=== PATIENT | male | born 1955 | race Caucasian/White ===

== ENCOUNTER 2021-10-11 11:56 | Inpatient (IN) ==
[2021-10-11] MEDS ORDERED: Aspirin 81 MG TAB.CHEW PO ONE (12:22)
[2021-10-11] MEDS ORDERED: *HR* Metoprolol 5 MG/5 ML VIAL IVP ONE (12:23)
[2021-10-11] MEDS ORDERED: Furosemide 40 MG/4 ML VIAL IVP ONE (12:23)
[2021-10-11 13:03] LABS: Basophils % 0.5 %; Eosinophils % 0.5 %; Hemoglobin 13.5 g/dL (12.9-16.9); Immature Granulocytes % 0.5 % (0-4); Lymphocytes # 1.3 K/mcL (0.6-4.6); Lymphocytes % 19.2 %; Mean Corpuscular HGB Conc 32.9 g/dL (31.6-35.5); Mean Corpuscular Hemoglobin 34.5 pg (28.0-33.3); Mean Corpuscular Volume 104.9 fL (83.0-100.0); Mean Platelet Volume 10.9 fL (9.4-12.4); Monocytes # 0.9 K/mcL (0.0-1.3); Monocytes % 13.5 %; Neutrophils # 4.4 K/mcL (1.6-8.9); Platelet Count 176 K/mcL (140-400); Red Blood Count 3.91 M/mcL (4.19-5.50); Red Cell Distribution Width 13.2 % (11.5-14.5); Segmented Neutrophils % 65.8 %; White Blood Count 6.7 K/mcL (4.3-11.1)
[2021-10-11 13:17] LABS: Bilirubin,Urine Negative (Negative); Blood,Urine Negative (Negative); Clarity,Urine Clear (Clear); Color,Urine Yellow (Yellow); Glucose,Urine (UA) Normal (Normal); Hyaline Casts,Urine Many per lpf (None Seen); Ketones,Urine Negative (Negative); Leukocyte Esterase,Urine Trace (Negative); Mucus,Urine Few per lpf (None-Few); Nitrite,Urine Negative (Negative); Protein,Urine Negative (Neg-Trace); RBC,Urine 0-3 per hpf (0-3); Renal Epithelial Cells,Urine Few per hpf (None-Few); Squamous Epithelial Cell,Urine Few per hpf (None-Few); Transitional Epi Cells,Urine Few per hpf (None-Few); Urobilinogen,Urine Normal (Normal)
[2021-10-11 13:22] LABS: Alanine Aminotransferase 79 Units/L (7-52); Albumin 3.9 g/dL (3.5-5.7); Albumin/Globulin Ratio 1.3 (1.1-2.2); Alkaline Phosphatase 88 Units/L (34-104); Aspartate Amino Transferase 115 Units/L (13-39); BUN/Creatinine Ratio 18 (6-26); Bilirubin,Direct 0.7 mg/dL (0.0-0.2); Bilirubin,Indirect 0.8 mg/dL (0.0-1.0); Bilirubin,Total 1.5 mg/dL (0.3-1.0); Blood Urea Nitrogen 26 mg/dL (8-23); Calcium 9.1 mg/dL (8.6-10.3); Carbon Dioxide 28 mEq/L (23-29); Chloride 92 mEq/L (98-107); Globulin 2.9 g/dL (2.4-3.5); Glucose 92 mg/dL (70-105); Osmolality,Calculated 268 (280-300); Potassium 5.1 mEq/L (3.5-5.1); Sodium 127 mEq/L (136-145); Total Protein 6.8 g/dL (6.4-8.9); Troponin I 0.03 ng/mL (< 0.04); eGFR For African Americans 59 (> 60); eGFR For Non-African Americans 48 (> 60)
[2021-10-11 13:35] LABS: Thyroid Stimulating Hormone 3.072 mcIU/mL (0.340-5.600)
[2021-10-11] MEDS ORDERED: DilTIAZem 50 MG/50 ML IV.SOLN IVC SCH (13:45)
[2021-10-11] MEDS ORDERED: 0.9 % Sodium Chloride 500 ML IVC ONE (13:56)
[2021-10-11 14:18] LABS: Ethanol < 10 mg/dL (Less than 10)
[2021-10-11 15:01] LABS: Potassium,Urine 52.8 mEq/L
[2021-10-11] MEDS ORDERED: Melatonin 3 MG TABLET PO PRN (15:23)
[2021-10-11] MEDS ORDERED: Naloxone 0.4 MG/ML INJ IVP PRN (15:23)
[2021-10-11] MEDS ORDERED: Mag Hydrox/Al Hydrox/Simeth 30 ML UDC PO PRN (15:23)
[2021-10-11] MEDS ORDERED: Acetaminophen 325 MG TABLET PO PRN (15:23)
[2021-10-11] MEDS ORDERED: MOM Conc 10 ML UD.LIQ PO PRN (15:23)
[2021-10-11] MEDS ORDERED: Ondansetron 4 MG/2 ML VIAL IVP PRN (15:23)
[2021-10-11] MEDS ORDERED: Perflutren Lipid Microsphere 1.3 ML in 0.9 % Sodium Chloride 8.7 ML IVP PRN (17:21)
[2021-10-11] MEDS ORDERED: FluocinoNIDE 0.05% CRM 15 GM TUBE TP PRN (22:31)
[2021-10-11] MEDS: Levalbuterol Neb 1.25 MG/3 ML IH SCH (23:20)
[2021-10-12 01:22] LABS: Hemoglobin 12.2 g/dL (12.9-16.9); Mean Corpuscular HGB Conc 33.9 g/dL (31.6-35.5); Mean Corpuscular Hemoglobin 34.9 pg (28.0-33.3); Mean Corpuscular Volume 102.9 fL (83.0-100.0); Mean Platelet Volume 10.3 fL (9.4-12.4); Platelet Count 145 K/mcL (140-400); White Blood Count 5.9 K/mcL (4.3-11.1)
[2021-10-12 01:45] LABS: BUN/Creatinine Ratio 20 (6-26); Blood Urea Nitrogen 24 mg/dL (8-23); Calcium 8.4 mg/dL (8.6-10.3); Carbon Dioxide 29 mEq/L (23-29); Chloride 92 mEq/L (98-107); Chol/HDL Ratio 3.3 (0-4.9); Cholesterol 75 mg/dL (< 200); Glucose 148 mg/dL (70-105); HDL Cholesterol 23 mg/dL (40-59); LDL Cholesterol,Calculated 43 mg/dL (< 100); Magnesium 1.7 mg/dL (1.6-2.6); Osmolality,Calculated 271 (280-300); Phosphorous 2.9 mg/dL (2.7-4.5); Potassium 4.2 mEq/L (3.5-5.1); Sodium 127 mEq/L (136-145); Triglycerides 47 mg/dL (< 150); eGFR For African Americans > 60 (> 60); eGFR For Non-African Americans 59 (> 60)
[2021-10-12 02:17] LABS: Estimated Average Glucose 128 mg/dl; Hemoglobin A1C 6.1 %
[2021-10-12] MEDS: Levalbuterol Neb 1.25 MG/3 ML IH SCH ×6 (04:09→23:15)
[2021-10-12 04:27] LABS: Hepatitis B Core IgM Nonreactive (Nonreactive)
[2021-10-12 04:28] LABS: Hepatitis A Antibody IgM Nonreactive (Nonreactive); Hepatitis C Virus Antibody Nonreactive (Nonreactive)
[2021-10-12] MEDS ORDERED: Furosemide 40 MG TABLET PO SCH (09:00)
[2021-10-12] MEDS ORDERED: *HR* Rivaroxaban 10 MG TABLET PO SCH (09:00)
[2021-10-12] MEDS: Cyanocobalamin (B-12) 1,000 MCG TABLET PO SCH (09:09)
[2021-10-12] MEDS: Acyclovir 200 MG CAPSULE PO SCH ×2 (09:09→20:23)
[2021-10-12] MEDS: Loratadine 10 MG TABLET PO SCH (09:09)
[2021-10-12] MEDS: lisinopriL 5 MG TABLET PO SCH (09:09)
[2021-10-12] MEDS: Aspirin Enteric Coated 81 MG Tablet PO SCH (09:09)
[2021-10-12] MEDS: Cholecalciferol (D-3) 1,000 UNIT (25MCG) TABLET PO SCH (09:09)
[2021-10-12] MEDS: Budesonide/Formoterol 160/4.5 1 PUFF INH IH SCH ×2 (11:42→20:17)
[2021-10-12] MEDS: Tiotropium 10 INH DOSE IH SCH (11:43)
[2021-10-12 11:44] LABS: Hepatitis B Surface Antigen Reactive (Nonreactive)
[2021-10-12] MEDS ORDERED: Metoprolol XL (24 HR) Succ 25 MG TAB.ER.24H PO SCH (13:22)
[2021-10-12] MEDS ORDERED: *HR* Digoxin 0.5 MG/2 ML AMPUL IVP ONE (13:51)
[2021-10-12] MEDS ORDERED: *HR* Heparin 5,000 UNIT/ML VIAL IVP ONE (14:02)
[2021-10-12] MEDS ORDERED: *HR* Heparin 5,000 UNIT/ML VIAL IVP PRN (14:02)
[2021-10-12] MEDS ORDERED: Heparin 25,000UNIT/250ML 1/2NS 25,000 UNIT/250 ML IV.SOLN IVC SCH (14:15)
[2021-10-12 14:54] LABS: Hematocrit 39.3 % (37.5-50.1); Hemoglobin 12.7 g/dL (12.9-16.9); Mean Corpuscular HGB Conc 32.3 g/dL (31.6-35.5); Mean Corpuscular Hemoglobin 34.5 pg (28.0-33.3); Mean Corpuscular Volume 106.8 fL (83.0-100.0); Mean Platelet Volume 10.1 fL (9.4-12.4); Platelet Count 170 K/mcL (140-400); Red Blood Count 3.68 M/mcL (4.19-5.50); Red Cell Distribution Width 13.3 % (11.5-14.5); White Blood Count 6.1 K/mcL (4.3-11.1)
[2021-10-12 15:05] LABS: INR 4.2
[2021-10-12 15:07] LABS: Activated Partial Thrombo Time 43.4 Seconds (26.0-36.0)
[2021-10-12 15:15] LABS: Heparin anti-factor XA UFH > 2.00 IU/mL (0.30-0.70); Prothrombin Time 46.5 Seconds (9.4-12.1)
[2021-10-12] MEDS: Furosemide 40 MG/4 ML VIAL IVP SCH (16:02)
[2021-10-12] MEDS: Heparin 25,000UNIT/250ML 1/2NS 25,000 UNIT/250 ML IV.SOLN IVC SCH (16:04)
[2021-10-12] MEDS: *HR* Digoxin 0.5 MG/2 ML AMPUL IVP SCH (20:23)
[2021-10-13] MEDS: *HR* Digoxin 0.5 MG/2 ML AMPUL IVP SCH (01:00)
[2021-10-13] MEDS: Levalbuterol Neb 1.25 MG/3 ML IH SCH ×5 (03:31→20:39)
[2021-10-13 07:12] LABS: Hematocrit 40.4 % (37.5-50.1); Hemoglobin 13.4 g/dL (12.9-16.9); Mean Corpuscular HGB Conc 33.2 g/dL (31.6-35.5); Mean Corpuscular Hemoglobin 34.8 pg (28.0-33.3); Mean Corpuscular Volume 104.9 fL (83.0-100.0); Mean Platelet Volume 9.8 fL (9.4-12.4); Platelet Count 161 K/mcL (140-400); Red Blood Count 3.85 M/mcL (4.19-5.50); Red Cell Distribution Width 13.2 % (11.5-14.5); White Blood Count 6.7 K/mcL (4.3-11.1)
[2021-10-13 07:32] LABS: Alanine Aminotransferase 58 Units/L (7-52); Albumin 3.5 g/dL (3.5-5.7); Albumin/Globulin Ratio 1.3 (1.1-2.2); Alkaline Phosphatase 78 Units/L (34-104); Aspartate Amino Transferase 67 Units/L (13-39); BUN/Creatinine Ratio 17 (6-26); Bilirubin,Total 1.1 mg/dL (0.3-1.0); Blood Urea Nitrogen 15 mg/dL (8-23); Calcium 8.6 mg/dL (8.6-10.3); Carbon Dioxide 32 mEq/L (23-29); Chloride 93 mEq/L (98-107); Globulin 2.6 g/dL (2.4-3.5); Glucose 145 mg/dL (70-105); Osmolality,Calculated 271 (280-300); Potassium 3.9 mEq/L (3.5-5.1); Sodium 129 mEq/L (136-145); Total Protein 6.1 g/dL (6.4-8.9); eGFR For African Americans > 60 (> 60); eGFR For Non-African Americans > 60 (> 60)
[2021-10-13] MEDS: Tiotropium 10 INH DOSE IH SCH (07:48)
[2021-10-13] MEDS: Budesonide/Formoterol 160/4.5 1 PUFF INH IH SCH ×2 (07:48→20:42)
[2021-10-13] MEDS: Acyclovir 200 MG CAPSULE PO SCH ×2 (08:41→21:25)
[2021-10-13] MEDS: lisinopriL 5 MG TABLET PO SCH (08:41)
[2021-10-13] MEDS: Cholecalciferol (D-3) 1,000 UNIT (25MCG) TABLET PO SCH (08:41)
[2021-10-13] MEDS: Aspirin Enteric Coated 81 MG Tablet PO SCH (08:42)
[2021-10-13] MEDS: Cyanocobalamin (B-12) 1,000 MCG TABLET PO SCH (08:42)
[2021-10-13] MEDS: Loratadine 10 MG TABLET PO SCH (08:44)
[2021-10-13] MEDS: Furosemide 40 MG/4 ML VIAL IVP SCH (10:10)
[2021-10-13] MEDS: Heparin 25,000UNIT/250ML 1/2NS 25,000 UNIT/250 ML IV.SOLN IVC SCH ×2 (10:11→23:48)
[2021-10-13] MEDS: *HR* Metoprolol 5 MG/5 ML VIAL IVP PRN ×2 (12:09→17:36)
[2021-10-13] MEDS ORDERED: *HR* Rivaroxaban 10 MG TABLET PO SCH (17:00)
[2021-10-13] MEDS ORDERED: Metoprolol XL (24 HR) Succ 25 MG TAB.ER.24H PO ONE (17:15)
[2021-10-13] MEDS ORDERED: *HR* Digoxin 0.5 MG/2 ML AMPUL IVP ONE (18:29)
[2021-10-13] MEDS: *HR* Heparin 5,000 UNIT/ML VIAL IVP PRN (19:17)
[2021-10-14] MEDS: Levalbuterol Neb 1.25 MG/3 ML IH SCH ×7 (00:07→23:47)
[2021-10-14 01:42] LABS: Hematocrit 39.9 % (37.5-50.1); Hemoglobin 13.4 g/dL (12.9-16.9); Mean Corpuscular HGB Conc 33.6 g/dL (31.6-35.5); Mean Corpuscular Hemoglobin 35.1 pg (28.0-33.3); Mean Corpuscular Volume 104.5 fL (83.0-100.0); Mean Platelet Volume 10.1 fL (9.4-12.4); Platelet Count 200 K/mcL (140-400); Red Blood Count 3.82 M/mcL (4.19-5.50); Red Cell Distribution Width 13.2 % (11.5-14.5); White Blood Count 6.6 K/mcL (4.3-11.1)
[2021-10-14 01:59] LABS: Alanine Aminotransferase 52 Units/L (7-52); Albumin 3.5 g/dL (3.5-5.7); Albumin/Globulin Ratio 1.2 (1.1-2.2); Alkaline Phosphatase 73 Units/L (34-104); Aspartate Amino Transferase 55 Units/L (13-39); BUN/Creatinine Ratio 15 (6-26); Blood Urea Nitrogen 13 mg/dL (8-23); Calcium 8.7 mg/dL (8.6-10.3); Carbon Dioxide 36 mEq/L (23-29); Chloride 92 mEq/L (98-107); Globulin 2.9 g/dL (2.4-3.5); Glucose 130 mg/dL (70-105); Osmolality,Calculated 274 (280-300); Potassium 4.6 mEq/L (3.5-5.1); Sodium 131 mEq/L (136-145); Total Protein 6.4 g/dL (6.4-8.9); eGFR For African Americans > 60 (> 60); eGFR For Non-African Americans > 60 (> 60)
[2021-10-14 02:23] LABS: Folate 13.3 ng/mL (3.0-16.0)
[2021-10-14] MEDS: Tiotropium 10 INH DOSE IH SCH (07:26)
[2021-10-14] MEDS: Budesonide/Formoterol 160/4.5 1 PUFF INH IH SCH ×2 (07:27→20:31)
[2021-10-14] MEDS: Furosemide 40 MG/4 ML VIAL IVP SCH (08:37)
[2021-10-14] MEDS: Loratadine 10 MG TABLET PO SCH (08:38)
[2021-10-14] MEDS: Cyanocobalamin (B-12) 1,000 MCG TABLET PO SCH (08:38)
[2021-10-14] MEDS: Cholecalciferol (D-3) 1,000 UNIT (25MCG) TABLET PO SCH (08:38)
[2021-10-14] MEDS: Acyclovir 200 MG CAPSULE PO SCH ×2 (08:38→20:52)
[2021-10-14] MEDS: Aspirin Enteric Coated 81 MG Tablet PO SCH (08:38)
[2021-10-14] MEDS ORDERED: Metoprolol XL (24 HR) Succ 25 MG TAB.ER.24H PO SCH (09:00)
[2021-10-14] MEDS: *HR* Digoxin 0.5 MG/2 ML AMPUL IVP SCH (11:58)
[2021-10-14] MEDS: Metoprolol XL (24 HR) Succ 25 MG TAB.ER.24H PO ONE (14:13)
[2021-10-14] MEDS ORDERED: Albumin 25% 25gram/100mL 25 GM/100 ML IV.SOLN IVPB ONE (14:27)
[2021-10-14] MEDS ORDERED: 0.9 % Sodium Chloride 500 ML IVC ONE (15:23)
[2021-10-14] MEDS: *HR* Metoprolol 5 MG/5 ML VIAL IVP PRN ×2 (16:27→22:48)
[2021-10-14] MEDS ORDERED: Metoprolol XL (24 HR) Succ 25 MG TAB.ER.24H PO ONE ×2 (17:04→18:30)
[2021-10-14] MEDS: Heparin 25,000UNIT/250ML 1/2NS 25,000 UNIT/250 ML IV.SOLN IVC SCH (20:51)
[2021-10-15 01:27] LABS: Hematocrit 36.4 % (37.5-50.1); Hemoglobin 12.1 g/dL (12.9-16.9); Mean Corpuscular HGB Conc 33.2 g/dL (31.6-35.5); Mean Corpuscular Hemoglobin 35.1 pg (28.0-33.3); Mean Corpuscular Volume 105.5 fL (83.0-100.0); Mean Platelet Volume 9.8 fL (9.4-12.4); Platelet Count 180 K/mcL (140-400); Red Blood Count 3.45 M/mcL (4.19-5.50); Red Cell Distribution Width 13.2 % (11.5-14.5); White Blood Count 5.4 K/mcL (4.3-11.1)
[2021-10-15 01:45] LABS: BUN/Creatinine Ratio 14 (6-26); Blood Urea Nitrogen 11 mg/dL (8-23); Calcium 8.9 mg/dL (8.6-10.3); Carbon Dioxide 34 mEq/L (23-29); Chloride 94 mEq/L (98-107); Glucose 131 mg/dL (70-105); Magnesium 1.6 mg/dL (1.6-2.6); Osmolality,Calculated 279 (280-300); Potassium 4.5 mEq/L (3.5-5.1); Sodium 134 mEq/L (136-145); eGFR For African Americans > 60 (> 60); eGFR For Non-African Americans > 60 (> 60)
[2021-10-15] MEDS: Levalbuterol Neb 1.25 MG/3 ML IH SCH ×6 (04:09→23:52)
[2021-10-15] MEDS: Budesonide/Formoterol 160/4.5 1 PUFF INH IH SCH ×2 (07:26→20:05)
[2021-10-15] MEDS: Tiotropium 10 INH DOSE IH SCH (07:26)
[2021-10-15] MEDS: Metoprolol XL (24 HR) Succ 25 MG TAB.ER.24H PO ONE (07:47)
[2021-10-15] MEDS: Cholecalciferol (D-3) 1,000 UNIT (25MCG) TABLET PO SCH (08:45)
[2021-10-15] MEDS: Acyclovir 200 MG CAPSULE PO SCH ×2 (08:45→19:23)
[2021-10-15] MEDS: Aspirin Enteric Coated 81 MG Tablet PO SCH (08:46)
[2021-10-15] MEDS: Metoprolol XL (24 HR) Succ 25 MG TAB.ER.24H PO SCH (08:46)
[2021-10-15] MEDS: Cyanocobalamin (B-12) 1,000 MCG TABLET PO SCH (08:46)
[2021-10-15] MEDS: *HR* Digoxin 0.5 MG/2 ML AMPUL IVP SCH (08:46)
[2021-10-15] MEDS: Loratadine 10 MG TABLET PO SCH (08:46)
[2021-10-15] MEDS: *HR* Metoprolol 5 MG/5 ML VIAL IVP PRN ×2 (13:07→19:22)
[2021-10-15] MEDS: *HR* Heparin 5,000 UNIT/ML VIAL IVP PRN (17:29)
[2021-10-15] MEDS ORDERED: *HR* Metoprolol 5 MG/5 ML VIAL IVP ONE (21:19)
[2021-10-16 00:30] LABS: Hematocrit 37.3 % (37.5-50.1); Hemoglobin 12.1 g/dL (12.9-16.9); Mean Corpuscular HGB Conc 32.4 g/dL (31.6-35.5); Mean Corpuscular Hemoglobin 34.7 pg (28.0-33.3); Mean Corpuscular Volume 106.9 fL (83.0-100.0); Mean Platelet Volume 9.9 fL (9.4-12.4); Platelet Count 176 K/mcL (140-400); Red Blood Count 3.49 M/mcL (4.19-5.50); Red Cell Distribution Width 13.4 % (11.5-14.5); White Blood Count 5.2 K/mcL (4.3-11.1)
[2021-10-16 00:40] LABS: Alanine Aminotransferase 36 Units/L (7-52); Albumin 3.6 g/dL (3.5-5.7); Albumin/Globulin Ratio 1.2 (1.1-2.2); Alkaline Phosphatase 71 Units/L (34-104); Aspartate Amino Transferase 32 Units/L (13-39); BUN/Creatinine Ratio 21 (6-26); Bilirubin,Total 0.6 mg/dL (0.3-1.0); Blood Urea Nitrogen 15 mg/dL (8-23); Calcium 9.2 mg/dL (8.6-10.3); Carbon Dioxide 33 mEq/L (23-29); Chloride 96 mEq/L (98-107); Globulin 2.9 g/dL (2.4-3.5); Glucose 140 mg/dL (70-105); Magnesium 1.8 mg/dL (1.6-2.6); Osmolality,Calculated 279 (280-300); Potassium 4.8 mEq/L (3.5-5.1); Sodium 133 mEq/L (136-145); Total Protein 6.5 g/dL (6.4-8.9); eGFR For African Americans > 60 (> 60); eGFR For Non-African Americans > 60 (> 60)
[2021-10-16] MEDS: Heparin 25,000UNIT/250ML 1/2NS 25,000 UNIT/250 ML IV.SOLN IVC SCH ×4 (02:58→23:42)
[2021-10-16] MEDS: Levalbuterol Neb 1.25 MG/3 ML IH SCH ×6 (04:15→23:54)
[2021-10-16] MEDS: Tiotropium 10 INH DOSE IH SCH (07:44)
[2021-10-16] MEDS: Budesonide/Formoterol 160/4.5 1 PUFF INH IH SCH ×2 (07:45→19:56)
[2021-10-16] MEDS: *HR* Digoxin 0.5 MG/2 ML AMPUL IVP SCH (08:25)
[2021-10-16] MEDS: Cyanocobalamin (B-12) 1,000 MCG TABLET PO SCH (08:26)
[2021-10-16] MEDS: Furosemide 20 MG/2 ML VIAL IVP SCH (08:26)
[2021-10-16] MEDS: Cholecalciferol (D-3) 1,000 UNIT (25MCG) TABLET PO SCH (08:26)
[2021-10-16] MEDS: Aspirin Enteric Coated 81 MG Tablet PO SCH (08:26)
[2021-10-16] MEDS: Acyclovir 200 MG CAPSULE PO SCH ×2 (08:26→20:14)
[2021-10-16] MEDS: Loratadine 10 MG TABLET PO SCH (08:26)
[2021-10-16] MEDS: Metoprolol XL (24 HR) Succ 25 MG TAB.ER.24H PO SCH (08:26)
[2021-10-16] MEDS: *HR* Metoprolol 5 MG/5 ML VIAL IVP PRN (10:11)
[2021-10-16] MEDS ORDERED: Furosemide 20 MG/2 ML VIAL IVP ONE (13:07)
[2021-10-16] MEDS ORDERED: *HR* Metoprolol 5 MG/5 ML VIAL IVP ONE (23:28)
[2021-10-17 03:12] LABS: Hematocrit 38.4 % (37.5-50.1); Hemoglobin 12.4 g/dL (12.9-16.9); Mean Corpuscular HGB Conc 32.3 g/dL (31.6-35.5); Mean Corpuscular Volume 105.2 fL (83.0-100.0); Mean Platelet Volume 9.9 fL (9.4-12.4); Platelet Count 194 K/mcL (140-400); Red Blood Count 3.65 M/mcL (4.19-5.50); Red Cell Distribution Width 13.5 % (11.5-14.5); White Blood Count 5.5 K/mcL (4.3-11.1)
[2021-10-17 03:29] LABS: Alanine Aminotransferase 34 Units/L (7-52); Albumin 3.9 g/dL (3.5-5.7); Albumin/Globulin Ratio 1.3 (1.1-2.2); Alkaline Phosphatase 72 Units/L (34-104); Aspartate Amino Transferase 31 Units/L (13-39); BUN/Creatinine Ratio 21 (6-26); Bilirubin,Total 0.6 mg/dL (0.3-1.0); Blood Urea Nitrogen 19 mg/dL (8-23); Calcium 9.8 mg/dL (8.6-10.3); Carbon Dioxide 33 mEq/L (23-29); Chloride 95 mEq/L (98-107); Globulin 2.9 g/dL (2.4-3.5); Glucose 116 mg/dL (70-105); Osmolality,Calculated 281 (280-300); Potassium 4.8 mEq/L (3.5-5.1); Sodium 134 mEq/L (136-145); Total Protein 6.8 g/dL (6.4-8.9); eGFR For African Americans > 60 (> 60); eGFR For Non-African Americans > 60 (> 60)
[2021-10-17] MEDS: Levalbuterol Neb 1.25 MG/3 ML IH SCH ×6 (03:32→23:44)
[2021-10-17] MEDS: Tiotropium 10 INH DOSE IH SCH (07:54)
[2021-10-17] MEDS: Budesonide/Formoterol 160/4.5 1 PUFF INH IH SCH ×2 (07:55→20:20)
[2021-10-17] MEDS: Metoprolol XL (24 HR) Succ 25 MG TAB.ER.24H PO SCH (08:44)
[2021-10-17] MEDS: Furosemide 20 MG/2 ML VIAL IVP SCH (08:44)
[2021-10-17] MEDS: Acyclovir 200 MG CAPSULE PO SCH ×2 (08:45→20:27)
[2021-10-17] MEDS: Loratadine 10 MG TABLET PO SCH (08:45)
[2021-10-17] MEDS: Aspirin Enteric Coated 81 MG Tablet PO SCH (08:45)
[2021-10-17] MEDS: Cholecalciferol (D-3) 1,000 UNIT (25MCG) TABLET PO SCH (08:45)
[2021-10-17] MEDS: Cyanocobalamin (B-12) 1,000 MCG TABLET PO SCH (08:45)
[2021-10-17] MEDS ORDERED: *HR* Digoxin 0.125 MG TABLET PO SCH (09:00)
[2021-10-17] MEDS: Heparin 25,000UNIT/250ML 1/2NS 25,000 UNIT/250 ML IV.SOLN IVC SCH (09:20)
[2021-10-17] MEDS ORDERED: Lidocaine Viscous Oral Soln 15 ML SOLUTION MM PRN (10:03)
[2021-10-17] MEDS ORDERED: 0.9 % Sodium Chloride 500 ML IVC ONE (10:04)
[2021-10-17] MEDS: *HR* FentaNYL (PF) 100 MCG/2 ML VIAL IVP PRN ×2 (10:25→10:35)
[2021-10-17] MEDS: *HR* Midazolam HCl 5 MG/5 ML VIAL IVP PRN ×2 (10:25→10:35)
[2021-10-17] MEDS: *HR* Amiodarone 200 MG TABLET PO SCH ×2 (12:08→20:26)
[2021-10-17 13:51] LABS: Hepatitis B Core Ab Total POSITIVE (Negative)
[2021-10-17] MEDS ORDERED: Metoprolol XL (24 HR) Succ 25 MG TAB.ER.24H PO SCH (18:00)
[2021-10-18 01:17] LABS: Hemoglobin 11.4 g/dL (12.9-16.9); Mean Corpuscular HGB Conc 31.7 g/dL (31.6-35.5); Mean Corpuscular Hemoglobin 33.8 pg (28.0-33.3); Mean Corpuscular Volume 106.8 fL (83.0-100.0); Mean Platelet Volume 9.8 fL (9.4-12.4); Platelet Count 177 K/mcL (140-400); Red Blood Count 3.37 M/mcL (4.19-5.50); Red Cell Distribution Width 13.6 % (11.5-14.5); White Blood Count 5.1 K/mcL (4.3-11.1)
[2021-10-18] MEDS: Heparin 25,000UNIT/250ML 1/2NS 25,000 UNIT/250 ML IV.SOLN IVC SCH (01:44)
[2021-10-18 02:09] LABS: BUN/Creatinine Ratio 25 (6-26); Blood Urea Nitrogen 18 mg/dL (8-23); Calcium 9.3 mg/dL (8.6-10.3); Carbon Dioxide 31 mEq/L (23-29); Chloride 95 mEq/L (98-107); Glucose 144 mg/dL (70-105); Osmolality,Calculated 282 (280-300); Potassium 4.6 mEq/L (3.5-5.1); Sodium 134 mEq/L (136-145); eGFR For African Americans > 60 (> 60); eGFR For Non-African Americans > 60 (> 60)
[2021-10-18] MEDS: Levalbuterol Neb 1.25 MG/3 ML IH SCH ×4 (03:49→15:43)
[2021-10-18 06:27] LABS: Hepatitis Be Antigen NEGATIVE (Negative)
[2021-10-18] MEDS: Tiotropium 10 INH DOSE IH SCH (07:22)
[2021-10-18] MEDS: Budesonide/Formoterol 160/4.5 1 PUFF INH IH SCH (07:22)
[2021-10-18] MEDS: Metoprolol XL (24 HR) Succ 25 MG TAB.ER.24H PO SCH (07:41)
[2021-10-18] MEDS: Cyanocobalamin (B-12) 1,000 MCG TABLET PO SCH (07:41)
[2021-10-18] MEDS: Aspirin Enteric Coated 81 MG Tablet PO SCH (07:41)
[2021-10-18] MEDS: Loratadine 10 MG TABLET PO SCH (07:41)
[2021-10-18] MEDS: Acyclovir 200 MG CAPSULE PO SCH (07:41)
[2021-10-18] MEDS: Furosemide 20 MG/2 ML VIAL IVP SCH (07:42)
[2021-10-18] MEDS: Cholecalciferol (D-3) 1,000 UNIT (25MCG) TABLET PO SCH (07:42)
[2021-10-18] MEDS: *HR* Amiodarone 200 MG TABLET PO SCH (07:42)
[2021-10-18] MEDS ORDERED: lisinopriL 5 MG TABLET PO SCH (09:00)
[2021-10-18] MEDS: *HR* Heparin 5,000 UNIT/ML VIAL IVP PRN (11:02)
[2021-10-18] MEDS ORDERED: Heparin 1,000 UNITS/500 mL 500 ML ONE (14:09)
[2021-10-18] MEDS ORDERED: ISOVUE-370 200 ML INFUS..BTL ONE (14:09)
[2021-10-18] MEDS ORDERED: 0.9 % Sodium Chloride 2,000 ML ONE (14:09)
[2021-10-18] MEDS ORDERED: *HR* Heparin 10,000 UNIT/10 ML VIAL ONE (14:09)
[2021-10-18] MEDS ORDERED: Nitroglycerin 1,000 MCG/5 ML VIAL IV ONE (14:09)
[2021-10-18] MEDS ORDERED: *HR* FentaNYL (PF) 100 MCG/2 ML VIAL ONE (14:56)
[2021-10-18] MEDS ORDERED: *HR* Midazolam HCl 2 MG/2 ML VIAL ONE (14:56)
[2021-10-18] MEDS ORDERED: *HR* Rivaroxaban 10 MG TABLET PO SCH (17:00)
[2021-10-18] MEDS ORDERED: Furosemide 40 MG TABLET PO SCH (17:00)
[2021-10-18 19:36] VITALS: BP 132/72; PULSE 80; TEMP 97.7; O2SAT 97
[2021-10-23 10:21] LABS: HBV Quant Interpretation DETECTED (Not Detected); HBV Quant Log by PCR 3.51 log IU/mL
== END 2021-10-18 20:34 | disposition home or self-care (01) | DRG 291 ==
LOC: 2ANU 11:56 → EMEROOARM 11:56 → SUATTDRO 17:21 → 2ANU 18:08 → SUATTDRO 10-14 15:59
PROVIDERS: ADMIT Internal Medicine; ATTEND Internal Medicine

== ENCOUNTER 2021-11-01 11:08 | Observation (INO) ==
[2021-11-01] MEDS ORDERED: 0.9 % Sodium Chloride 1,000 ML IVC ONE (11:29)
[2021-11-01 11:53] LABS: Basophils # 0.1 K/mcL (0.0-0.2); Basophils % 0.8 %; Eosinophils # 0.1 K/mcL (0.0-0.6); Eosinophils % 2.3 %; Hematocrit 37.8 % (37.5-50.1); Hemoglobin 12.5 g/dL (12.9-16.9); Immature Granulocytes % 0.3 % (0-4); Lymphocytes # 1.1 K/mcL (0.6-4.6); Lymphocytes % 18.6 %; Mean Corpuscular HGB Conc 33.1 g/dL (31.6-35.5); Mean Corpuscular Hemoglobin 34.5 pg (28.0-33.3); Mean Corpuscular Volume 104.4 fL (83.0-100.0); Mean Platelet Volume 10.2 fL (9.4-12.4); Monocytes # 0.5 K/mcL (0.0-1.3); Monocytes % 8.1 %; Neutrophils # 4.2 K/mcL (1.6-8.9); Platelet Count 171 K/mcL (140-400); Red Blood Count 3.62 M/mcL (4.19-5.50); Red Cell Distribution Width 13.5 % (11.5-14.5); Segmented Neutrophils % 69.9 %
[2021-11-01 12:06] LABS: INR 1.7; Prothrombin Time 18.5 Seconds (9.4-12.1)
[2021-11-01 12:09] LABS: Activated Partial Thrombo Time 40.2 Seconds (26.0-36.0)
[2021-11-01 12:11] LABS: BUN/Creatinine Ratio 14 (6-26); Blood Urea Nitrogen 15 mg/dL (8-23); Calcium 9.3 mg/dL (8.6-10.3); Carbon Dioxide 31 mEq/L (23-29); Chloride 94 mEq/L (98-107); Glucose 111 mg/dL (70-105); Magnesium 1.8 mg/dL (1.6-2.6); Osmolality,Calculated 276 (280-300); Potassium 4.2 mEq/L (3.5-5.1); Sodium 132 mEq/L (136-145); Troponin I < 0.03 ng/mL (< 0.04); eGFR For African Americans > 60 (> 60); eGFR For Non-African Americans > 60 (> 60)
[2021-11-01 12:25] LABS: Thyroid Stimulating Hormone 4.913 mcIU/mL (0.340-5.600)
[2021-11-01] MEDS ORDERED: Melatonin 3 MG TABLET PO PRN (13:39)
[2021-11-01] MEDS ORDERED: Naloxone 0.4 MG/ML INJ IVP PRN (13:39)
[2021-11-01] MEDS ORDERED: Acetaminophen 325 MG TABLET PO PRN (13:39)
[2021-11-01] MEDS ORDERED: Furosemide 20 MG/2 ML VIAL IVP ONE (15:44)
[2021-11-01] MEDS ORDERED: *HR* Metoprolol 5 MG/5 ML VIAL IVP PRN (16:43)
[2021-11-01] MEDS: *HR* Rivaroxaban 10 MG TABLET PO SCH (16:46)
[2021-11-01] MEDS: Ipratropium/Albuterol Neb 3 ML IH PRN ×2 (19:47→23:58)
[2021-11-01] MEDS: Budesonide/Formoterol 160/4.5 1 PUFF INH IH SCH (19:47)
[2021-11-01] MEDS: Acyclovir 200 MG CAPSULE PO SCH (20:49)
[2021-11-01] MEDS: *HR* Amiodarone 200 MG TABLET PO SCH (20:49)
[2021-11-02 02:17] LABS: Hematocrit 34.8 % (37.5-50.1); Hemoglobin 11.5 g/dL (12.9-16.9); Mean Corpuscular Hemoglobin 33.9 pg (28.0-33.3); Mean Corpuscular Volume 102.7 fL (83.0-100.0); Mean Platelet Volume 10.1 fL (9.4-12.4); Platelet Count 154 K/mcL (140-400); Red Blood Count 3.39 M/mcL (4.19-5.50); Red Cell Distribution Width 13.6 % (11.5-14.5); White Blood Count 5.7 K/mcL (4.3-11.1)
[2021-11-02 02:35] LABS: BUN/Creatinine Ratio 16 (6-26); Blood Urea Nitrogen 14 mg/dL (8-23); Carbon Dioxide 30 mEq/L (23-29); Chloride 97 mEq/L (98-107); Glucose 114 mg/dL (70-105); Magnesium 1.9 mg/dL (1.6-2.6); Osmolality,Calculated 277 (280-300); Phosphorous 3.4 mg/dL (2.7-4.5); Sodium 133 mEq/L (136-145); eGFR For African Americans > 60 (> 60); eGFR For Non-African Americans > 60 (> 60)
[2021-11-02 03:02] LABS: Folate 13.4 ng/mL (3.0-16.0)
[2021-11-02] MEDS: Ipratropium/Albuterol Neb 3 ML IH PRN (03:46)
[2021-11-02] MEDS: Budesonide/Formoterol 160/4.5 1 PUFF INH IH SCH ×2 (08:33→19:58)
[2021-11-02] MEDS: Tiotropium 10 INH DOSE IH SCH (08:34)
[2021-11-02] MEDS ORDERED: Metoprolol XL (24 HR) Succ 50 MG TAB.ER.24H PO SCH (09:00)
[2021-11-02] MEDS ORDERED: lisinopriL 5 MG TABLET PO SCH (09:00)
[2021-11-02] MEDS: Aspirin Enteric Coated 81 MG Tablet PO SCH (09:46)
[2021-11-02] MEDS: Ascorbic Acid 500 MG TABLET PO SCH (09:46)
[2021-11-02] MEDS: (Omega-3/Dha/Epa/Fish Oil [Fish Oil 1,000 Mg Softgel] PO SCH (09:46)
[2021-11-02] MEDS: Loratadine 10 MG TABLET PO SCH (09:46)
[2021-11-02] MEDS: Cholecalciferol (D-3) 1,000 UNIT (25MCG) TABLET PO SCH (09:46)
[2021-11-02] MEDS: *HR* Amiodarone 200 MG TABLET PO SCH ×2 (09:46→21:26)
[2021-11-02] MEDS: Acyclovir 200 MG CAPSULE PO SCH ×2 (09:46→21:25)
[2021-11-02] MEDS: Cyanocobalamin (B-12) 1,000 MCG TABLET PO SCH (09:46)
[2021-11-02] MEDS: Furosemide 40 MG TABLET PO SCH ×2 (16:48→16:49)
[2021-11-02] MEDS: *HR* Rivaroxaban 10 MG TABLET PO SCH (16:48)
[2021-11-02] MEDS: Metoprolol XL (24 HR) Succ 50 MG TAB.ER.24H PO SCH (21:26)
[2021-11-03 01:13] LABS: Hematocrit 36.1 % (37.5-50.1); Hemoglobin 11.6 g/dL (12.9-16.9); Mean Corpuscular HGB Conc 32.1 g/dL (31.6-35.5); Mean Corpuscular Hemoglobin 33.8 pg (28.0-33.3); Mean Corpuscular Volume 105.2 fL (83.0-100.0); Mean Platelet Volume 10.3 fL (9.4-12.4); Platelet Count 160 K/mcL (140-400); Red Blood Count 3.43 M/mcL (4.19-5.50); Red Cell Distribution Width 13.6 % (11.5-14.5); White Blood Count 6.4 K/mcL (4.3-11.1)
[2021-11-03 01:27] LABS: BUN/Creatinine Ratio 17 (6-26); Blood Urea Nitrogen 15 mg/dL (8-23); Calcium 8.8 mg/dL (8.6-10.3); Carbon Dioxide 28 mEq/L (23-29); Chloride 98 mEq/L (98-107); Glucose 131 mg/dL (70-105); Osmolality,Calculated 279 (280-300); Potassium 4.4 mEq/L (3.5-5.1); Sodium 133 mEq/L (136-145); eGFR For African Americans > 60 (> 60); eGFR For Non-African Americans > 60 (> 60)
[2021-11-03] MEDS: Budesonide/Formoterol 160/4.5 1 PUFF INH IH SCH (08:34)
[2021-11-03] MEDS: Tiotropium 10 INH DOSE IH SCH (08:35)
[2021-11-03] MEDS ORDERED: lisinopriL 5 MG TABLET PO SCH (09:00)
[2021-11-03] MEDS ORDERED: Spironolactone 25 MG TABLET PO SCH (09:00)
[2021-11-03] MEDS: Cholecalciferol (D-3) 1,000 UNIT (25MCG) TABLET PO SCH (09:44)
[2021-11-03] MEDS: Metoprolol XL (24 HR) Succ 50 MG TAB.ER.24H PO SCH (09:45)
[2021-11-03] MEDS: Loratadine 10 MG TABLET PO SCH (09:45)
[2021-11-03] MEDS: Acyclovir 200 MG CAPSULE PO SCH (09:45)
[2021-11-03] MEDS: Cyanocobalamin (B-12) 1,000 MCG TABLET PO SCH (09:45)
[2021-11-03] MEDS: *HR* Amiodarone 200 MG TABLET PO SCH (09:45)
[2021-11-03] MEDS: Ascorbic Acid 500 MG TABLET PO SCH (09:45)
[2021-11-03] MEDS: (Omega-3/Dha/Epa/Fish Oil [Fish Oil 1,000 Mg Softgel] PO SCH (09:46)
[2021-11-03] MEDS: Aspirin Enteric Coated 81 MG Tablet PO SCH (09:46)
[2021-11-03] MEDS: Furosemide 40 MG TABLET PO SCH (09:56)
[2021-11-03 11:41] VITALS: BP 107/65; PULSE 113; TEMP 97.8; O2SAT 97
== END 2021-11-03 14:40 | disposition home or self-care (01) ==
LOC: EMEROOARM 11:08 → 3BNU 11:08 → SUATTDRO 13:26 → 3BNU 13:46
PROVIDERS: ADMIT Hospitalist; ATTEND Internal Medicine